=== PATIENT | male | born 1975 | race Caucasian/White ===

== ENCOUNTER 2018-06-30 22:10 | Emergency (ER) | payer SELFPAY ==
[2018-06-30 23:10] VITALS: BP 132/78
--- NOTE | 2018-06-30 23:46 | ER Document Report ---
ED Medical Screen (RME) - General Chief Complaint: Testicular Pain Stated Complaint: LEFT SIDED TESTICULAR/BACK PAIN Time Seen by Provider: 06/30/18 23:44 Notes: 43-year-old male with chief complaint of left testicular pain. He also states he has pain up into his abdomen and sometimes around to his flank. He has become nauseated with the pain. Pain has been intermittent for just over a week. Occasionally sharp. Denies fever, vomiting. He states he has had prostate infections in the past, denies history of kidney stones, denies injury to the testicles. TRAVEL OUTSIDE OF THE [place] IN LAST 30 DAYS: No Physical Exam - Vital signs Vitals: Temp Pulse Resp BP Pulse Ox 98.2 F 72 19 132/78 H 98 06/30/18 23:09 06/30/18 23:09 06/30/18 23:09 06/30/18 23:09 06/30/18 23:09 - Genitourinary Inspection: Normal Tenderness: Testicle tender - Left testicular tenderness in the front which is mild to moderate, cremasteric reflexes normal bilaterally, there is no swelling or erythema. No severe pain. Course - Re-evaluation Re-evalutation: Patient's examination does not indicate torsion. Workup pending. I have greeted and performed a rapid initial assessment of this patient. A comprehensive ED assessment and evaluation of the patient, analysis of test results and completion of the medical decision making process will be conducted by additional ED providers. - Vital Signs Vital signs: Temp Pulse Resp BP Pulse Ox 98.2 F 72 19 132/78 H 98 06/30/18 23:09 06/30/18 23:09 06/30/18 23:09 06/30/18 23:09 06/30/18 23:09
[2018-07-01 00:06] LABS: ABSOLUTE EOSINOPHILS # (AUTO) 0.2 10^3/uL (0.0-0.6); ABSOLUTE LYMPHOCYTES (AUTO) 0.7 10^3/uL (0.5-4.7); ABSOLUTE MONOCYTES (AUTO) 0.6 10^3/uL (0.1-1.4); ABSOLUTE NEUT (AUTO) 7.6 10^3/uL (1.7-8.2); BASOPHILS % (AUTO) 0.3 % (0-2); EOSINOPHILS % (AUTO) 2.2 % (0-6); HEMATOCRIT 44.1 % (37.9-51.0); HEMOGLOBIN 15.9 g/dL (13.5-17.0); LYMPHOCYTES % (AUTO) 7.2 % (13-45); MEAN CORPUSCULAR HEMOGLOBIN 32.1 pg (27.0-33.4); MEAN CORPUSCULAR VOLUME 89 fl (80-97); MONOCYTES % (AUTO) 6.3 % (3-13); PLATELET COUNT 301 10^3/uL (150-450); RED BLOOD COUNT 4.95 10^6/uL (4.35-5.55); RED CELL DISTRIBUTION WIDTH 13.1 % (11.5-14.0); TOTAL CELLS COUNTED % (AUTO) 100 %; WHITE BLOOD COUNT 9.1 10^3/uL (4.0-10.5)
[2018-07-01 00:10] LABS: APPEARANCE,URINE CLEAR; BILIRUBIN,URINE NEGATIVE (NEGATIVE); COLOR,URINE YELLOW; GLUCOSE, URINE NEGATIVE (NEGATIVE); KETONES,URINE NEGATIVE (NEGATIVE); LEUKOCYTE ESTERASE,URINE NEGATIVE (NEGATIVE); NITRITE,URINE NEGATIVE (NEGATIVE); PROTEIN,URINE NEGATIVE (NEGATIVE); URINE SPECIFIC GRAVITY 1.025
[2018-07-01 00:17] LABS: ANION GAP 9 (5-19); BLOOD UREA NITROGEN 24 mg/dL (7-20); CALCIUM 9.9 mg/dL (8.4-10.2); CARBON DIOXIDE 31 mmol/L (22-30); CHLORIDE 101 mmol/L (98-107); GLUCOSE 96 mg/dL (75-110); POTASSIUM 4.3 mmol/L (3.6-5.0); SODIUM 140.8 mmol/L (137-145)
[2018-07-01 01:36] LABS: CHLAM PCR NOT DETECTED (NOT DETECT); GON PCR NOT DETECTED (NOT DETECT)
--- NOTE | 2018-07-01 02:47 | RADIOLOGY REPORT (SQ) ---
CLINICAL HISTORY: left testicular pain COMPARISON: None. TECHNIQUE: US SCROTUM on 06/30/2018 11:44 PM CDT FINDINGS: Right testicle measures 4.8 x 2.0 x 3.4 cm and is normal in echotexture. The epididymis measures 1.0 cm. There is patent flow to the right testicle. Left testicle measures 4.8 x 2.2 x 3.3 cm and is normal in echotexture. The epididymis measures 1.1 cm. There is patent flow to the left testicle. IMPRESSION: No evidence of testicular mass or torsion.
[2018-07-01] MEDS ORDERED: KETOROLAC TROMETHAMINE 60 MG/2 ML SDV IM ONE (03:19)
[2018-07-01] MEDS ORDERED: CIPROFLOXACIN HCL 500 MG TABLET PO ONE (03:42)
[2018-07-01] MEDS ORDERED: HYDROCODONE/ACETAMINOPHEN 5-325 MG (6 TAB/ER DISP) PO PRN (03:58)
--- NOTE | 2018-07-01 04:03 | ER Document Report ---
ED General - General Chief Complaint: Testicular Pain Stated Complaint: LEFT SIDED TESTICULAR/BACK PAIN Time Seen by Provider: 06/30/18 23:44 Notes: Patient is a 43-year-old male with a past medical history of prostatitis in the past who presents complaining of one week of testicular pain worse in the left, low back pain, as well as intermittent testicular swelling. Patient reports pain to the affected areas as being a throbbing, aching, constant pain. Nothing seems to improve or worsen this pain. States this does feel somewhat similar to when he has had prostatitis. Denies any dysuria or dysuria. Denies testicular trauma or trauma to the low back. No fever, weight loss, history of malignancy, or IV drug use. Has not seen his primary care doctor regarding today's concerns. TRAVEL OUTSIDE OF THE [place] IN LAST 30 DAYS: No - Related Data Allergies/Adverse Reactions: No Known Allergies Allergy (Verified 07/01/18 03:55) Past Medical History - General Information source: Patient - Social History Smoking Status: Never Smoker Frequency of alcohol use: None Drug Abuse: None Lives with: Spouse/Significant other Family History: Reviewed & Not Pertinent Review of Systems - Review of Systems Notes: Constitutional: Negative for fever. HENT: Negative for sore throat. Eyes: Negative for visual changes. Cardiovascular: Negative for chest pain. Respiratory: Negative for shortness of breath. Gastrointestinal: Positive for nausea Genitourinary: Positive for testicular pain Musculoskeletal: Positive for low back pain Skin: Negative for rash. Neurological: Negative for headaches, weakness or numbness. 10 point ROS negative except as marked above and in HPI. Physical Exam - Vital signs Vitals: Temp Pulse Resp BP Pulse Ox 98.2 F 72 19 132/78 H 98 06/30/18 23:09 06/30/18 23:09 06/30/18 23:09 06/30/18 23:09 06/30/18 23:09 Interpretation: Normal Notes: PHYSICAL EXAMINATION: GENERAL: Appears moderately uncomfortable but in no acute distress HEAD: Atraumatic, normocephalic. EYES: Pupils equal round and reactive to light, extraocular movements intact, sclera anicteric, conjunctiva are normal. ENT: nares patent, oropharynx clear without exudates. Moist mucous membranes. NECK: Normal range of motion, supple without lymphadenopathy LUNGS: Breath sounds clear to auscultation bilaterally and equal. No wheezes rales or rhonchi. HEART: Regular rate and rhythm without murmurs ABDOMEN: Soft, nontender, normoactive bowel sounds. No guarding, no rebound. No masses appreciated. Rectal: Exquisite tenderness on palpation of the prostate which does feel somewhat enlarged and boggy. : No testicular swelling, no epididymal tenderness or swelling. Positive cremasteric reflex bilaterally. No scrotal or penile lesions. EXTREMITIES: Normal range of motion, no pitting or edema. No cyanosis. NEUROLOGICAL: No focal neurological deficits. Moves all extremities spontaneously and on command. PSYCH: Mildly anxious SKIN: Warm, Dry, normal turgor, no rashes or lesions noted. Course - Re-evaluation Re-evalutation: 07/01/18 04:02 Patient presents with 1 week of bilateral testicular pain worse in the left, low back pain and mild some pubic abdominal discomfort. On exam the patient has no appreciable testicular tenderness, swelling or evidence of epididymitis. No penile lesions. Positive cremasteric reflex bilaterally. Testicular ultrasound is unremarkable. Labs likewise unremarkable. Back exam without any red flag findings or history components. No midline tenderness, step-offs or deformities. On prostate exam the patient has exquisite tenderness on palpation of the prostate, actually became quite tearful during this portion of the exam. Overall history and exam highly suggestive of acute prostatitis. Patient does have a history of the same in the past. Patient was started on ciprofloxacin for the next 30 days. Has been advised to follow-up with urology. At this time will discharge with return precautions and follow-up recommendations. Verbal discharge instructions given a the bedside and opportunity for questions given. Medication warnings reviewed. Patient is in agreement with this plan and has verbalized understanding of return precautions and the need for primary care follow-up in the next 24-72 hours. - Vital Signs Vital signs: Temp Pulse Resp BP Pulse Ox 98.2 F 72 19 132/78 H 98 06/30/18 23:09 06/30/18 23:09 06/30/18 23:09 06/30/18 23:09 06/30/18 23:09 - Laboratory Result Diagrams: 06/30/18 23:50 06/30/18 23:50 Laboratory results interpreted by me: 06/30/18 06/30/18 06/30/18 23:50 23:50 23:50 Seg Neutrophils % 84.0 H Lymphocytes % 7.2 L Carbon Dioxide 31 H BUN 24 H Urine Urobilinogen 2.0 H - Diagnostic Test Radiology reviewed: Reports reviewed Discharge - Discharge Clinical Impression: Left testicular pain Prostatitis Qualifiers: Prostatitis type: acute Qualified Code(s): N41.0 - Acute prostatitis Low back pain Qualifiers: Chronicity: acute Back pain laterality: bilateral Sciatica presence: without sciatica Qualified Code(s): M54.5 - Low back pain Condition: Good Disposition: HOME, SELF-CARE Additional Instructions: Your being treated for an infection of your prostate. Please take all of the antibiotics until they are gone. Do not stop them even if you are feeling better. This infection can be related to multiple bacteria including sexually transmitted infections but can also be related to normal intestinal bacteria such as E. coli. Please return if you develop a fever greater than 101F, have persistent vomiting, pass out, worsening of your pain, become unable to urinate, or have any other symptoms that are worrisome to you. For your pain: Take ibuprofen 600 mg and acetaminophen 1000 mg every 6 hours together as needed for pain. Prescriptions: Ciprofloxacin HCl [Cipro 500 mg Tablet] 500 mg PO BID #60 tablet
== END 2018-07-01 04:25 | disposition home or self-care (01) ==
LOC: ER 22:10
DX: N41.0 Acute prostatitis (principal); N50.812 Left testicular pain; M54.5 Low back pain
CPT/HCPCS: 99284; 96372; 36415; 85025; 80048; 81001; 87491; 87591; 76870; 93976; J1885

== ENCOUNTER 2019-05-04 08:33 | Emergency (ER) | payer OTHER ==
--- NOTE | 2019-05-04 10:03 | ER Document Report ---
ED Medical Screen (RME) - General Chief Complaint: Flu Symptoms Stated Complaint: FLU SYMPTOMS Time Seen by Provider: 05/04/19 09:56 Mode of Arrival: Ambulatory Information source: Patient Notes: 44-year-old male presented to ED for complaint of multiple issues. He states on May 03 started developing prostate issues with urinary tract infections. He states he had similar incidents about a year ago and was seen in the emergency room and they helped him but told him the next time he had this he would need to get referred to a urologist. He states the prostate issues developed until now he has back pain on the left side. On April 11 he developed cough congestion fever chills and this is progressed until now he has severe fatigue shortness of breath cough wheezing and nausea which causes him to develop sweat on his face from the nausea. He is alert and oriented he is having a dry cough in the emergency room he is alert and oriented and he is afebrile at this time. Patient states he does not smoke cigarettes occasionally drinks last smoked marijuana about a month ago and works for [employer] company. After performing a Medical Screening Examination, I spoke with the patient at length in regards to leaving the hospital against medical advice. I do not believe the patient should leave but the patient is alert oriented x4, understands the risks and benefits of staying and leaving including disability and . Pt understands that he can return at any time for further care and is more than welcome to do so. Pt verbalizes this understanding. TRAVEL OUTSIDE OF THE [place] IN LAST 30 DAYS: No - Related Data Allergies/Adverse Reactions: No Known Allergies Allergy (Verified 07/01/18 03:55) Past Medical History Renal/ Medical History: Denies: Hx Peritoneal Dialysis Physical Exam - Vital signs Vitals: Temp Pulse Resp BP Pulse Ox 97.5 F 59 L 20 123/66 98 05/04/19 08:38 05/04/19 08:38 05/04/19 08:38 05/04/19 08:38 05/04/19 08:38 Course - Vital Signs Vital signs: Temp Pulse Resp BP Pulse Ox 97.5 F 59 L 20 123/66 98 05/04/19 08:38 05/04/19 08:38 05/04/19 08:38 05/04/19 08:38 05/04/19 08:38
[2019-05-04 10:29] LABS: ABSOLUTE BASOPHILS # (AUTO) 0.1 10^3/uL (0.0-0.2); ABSOLUTE EOSINOPHILS # (AUTO) 0.2 10^3/uL (0.0-0.6); ABSOLUTE MONOCYTES (AUTO) 0.5 10^3/uL (0.1-1.4); ABSOLUTE NEUT (AUTO) 3.7 10^3/uL (1.7-8.2); BASOPHILS % (AUTO) 0.9 % (0-2); EOSINOPHILS % (AUTO) 3.1 % (0-6); HEMATOCRIT 46.8 % (37.9-51.0); HEMOGLOBIN 16.2 g/dL (13.5-17.0); LYMPHOCYTES % (AUTO) 40.5 % (13-45); MEAN CORPUSCULAR HEMOGLOBIN 31.9 pg (27.0-33.4); MEAN CORPUSCULAR HGB CONC 34.6 g/dL (32.0-36.0); MEAN CORPUSCULAR VOLUME 92 fl (80-97); MONOCYTES % (AUTO) 6.5 % (3-13); PLATELET COUNT 362 10^3/uL (150-450); RED BLOOD COUNT 5.07 10^6/uL (4.35-5.55); RED CELL DISTRIBUTION WIDTH 14.1 % (11.5-14.0); TOTAL CELLS COUNTED % (AUTO) 100 %; WHITE BLOOD COUNT 7.5 10^3/uL (4.0-10.5)
[2019-05-04 10:37] LABS: APPEARANCE,URINE CLEAR; BILIRUBIN,URINE NEGATIVE (NEGATIVE); COLOR,URINE YELLOW; GLUCOSE, URINE NEGATIVE (NEGATIVE); KETONES,URINE NEGATIVE (NEGATIVE); PROTEIN,URINE NEGATIVE (NEGATIVE); URINE SPECIFIC GRAVITY 1.025; UROBILINOGEN,URINE NEGATIVE mg/dL (<2.0)
--- NOTE | 2019-05-04 10:43 | RADIOLOGY REPORT (SQ) ---
EXAM DESCRIPTION: CHEST 2 VIEWS COMPLETED DATE/TIME: 05/04/2019 10:35 am REASON FOR STUDY: Cough congestion wheezes COMPARISON: None. EXAM PARAMETERS: NUMBER OF VIEWS: Two views. TECHNIQUE: PA and lateral views of the chest were obtained.. RADIATION DOSE: NA LIMITATIONS: none FINDINGS: LUNGS AND PLEURA: No consolidation, pleural effusion or pneumothorax. MEDIASTINUM AND HILAR STRUCTURES: No mediastinal or hilar contour abnormality. HEART AND VASCULAR STRUCTURES: The cardiac silhouette and pulmonary vasculature are within normal fontana its. BONES: No acute findings. HARDWARE: None in the chest. OTHER: No other finding. IMPRESSION: No acute cardiopulmonary process. TECHNICAL DOCUMENTATION: JOB ID: [id number] [employer]- All Rights Reserved Reading location - IP/workstation name: [email or web address]
[2019-05-04 10:49] LABS: ALBUMIN 4.5 g/dL (3.5-5.0); ALKALINE PHOSPHATASE 73 U/L (38-126); ANION GAP 8 (5-19); ASPARTATE AMINO TRANSFERASE 38 U/L (17-59); BILIRUBIN,DIRECT 0.4 mg/dL (0.0-0.4); BILIRUBIN,TOTAL 0.5 mg/dL (0.2-1.3); BLOOD UREA NITROGEN 24 mg/dL (7-20); CALCIUM 9.4 mg/dL (8.4-10.2); CARBON DIOXIDE 29 mmol/L (22-30); CHLORIDE 106 mmol/L (98-107); GLUCOSE 102 mg/dL (75-110); POTASSIUM 4.8 mmol/L (3.6-5.0); TOTAL PROTEIN 8.2 g/dL (6.3-8.2)
--- NOTE | 2019-05-04 12:29 | ER Document Report ---
ED Flu Like - General Chief Complaint: Flu Symptoms Stated Complaint: FLU SYMPTOMS Time Seen by Provider: 05/04/19 09:56 Primary Care Provider: [facility] [Provider Group] - Follow up in 3-5 days Mode of Arrival: Ambulatory Notes: Patient is a 44-year-old male who presents to the emergency department with a chief complaint of a cough and flulike symptoms that he has had for the past 3 weeks. Patient has had a cough. Denies any purulent drainage. He also has complaints of fullness in his prostate area. States that he has history of prostate issues in the past. TRAVEL OUTSIDE OF THE [place] IN LAST 30 DAYS: No - Related Data Allergies/Adverse Reactions: No Known Allergies Allergy (Verified 07/01/18 03:55) Past Medical History - General Information source: Patient - Social History Smoking Status: Unknown if Ever Smoked Frequency of alcohol use: None Drug Abuse: None Family History: Reviewed & Not Pertinent Patient has suicidal ideation: No Patient has homicidal ideation: No Renal/ Medical History: Denies: Hx Peritoneal Dialysis Review of Systems - Review of Systems Notes: REVIEW OF SYSTEMS: CONSTITUTIONAL : Denies recent illness. Denies recent unintentional weight loss. See HPI. EENT: See HPI. CARDIOVASCULAR: Denies chest pain. RESPIRATORY: Denies shortness of breath, cough, congestion, difficulty breathing, or wheezing. GASTROINTESTINAL: Denies nausea, vomiting, and diarrhea. Denies abdominal pain. Denies constipation. GENITOURINARY: See HPI. MUSCULOSKELETAL: Denies neck and back pain. Denies joint pain or swelling. SKIN: Denies rash, itchiness, or lesions HEMATOLOGIC : Denies easy bruising or bleeding. LYMPHATIC: Denies swollen, painful, enlarged glands. NEUROLOGICAL: Denies no numbness or tingling denies weakness. Denies headache. Denies altered mental status. Denies alteration in speech. PSYCHIATRIC: Denies stress, anxiety, alteration in sleep patterns, or depression. All other systems reviewed and negative. Physical Exam - Vital signs Vitals: Temp Pulse Resp BP Pulse Ox 97.5 F 59 L 20 123/66 98 05/04/19 08:38 05/04/19 08:38 05/04/19 08:38 05/04/19 08:38 05/04/19 08:38 - Notes Notes: PHYSICAL EXAMINATION: GENERAL: Appears well, healthy, well-nourished, no acute distress. HEAD: Normocephalic, atraumatic. EYES: PERRL, conjunctiva normal, all extraocular movements intact, sclera nonicteric ENT: Moist mucous membranes. Rhinorrhea noted. Edema and erythema noted to the nasal mucosa. NECK: Supple, no noticeable swelling, redness, rash. Normal range of motion. LUNGS: Equal breath sounds bilaterally and clear to auscultation. No wheezes rales or rhonchi. CARDIOVASCULAR: S1-S2, regular rate, regular rhythm. Radial pulses 2+, normal. ABDOMEN: Normoactive bowel sounds. Soft, nontender, no guarding, no rebound tenderness, and no masses palpated. EXTREMITIES: Normal strength and range of motion, no pitting or edema. No cyanosis. NEUROLOGICAL: Moves all extremities upon command. Strength 5/5 in all extremities. PSYCH: Normal mood, normal affect. SKIN: Warm, dry. No rash, lesions, ulcerations noted. Normal skin turgor. RECTAL: Tenderness noted to the prostate on rectal exam. Course - Re-evaluation Re-evalutation: 05/04/19 12:32 Rectal exam done with SIMONE Brian at bedside. Patient did have tenderness noted to his prostate. Patient will be placed on ciprofloxacin. He will fo llow-up with urology. He also has bronchitis.Labs ordered and triage show a normal CBC. His lipase is mildly elevated. I instructed him to continue to drink plenty of fluids. Urinalysis is negative. Follow-up precautions were given. Verbal discharge instructions were given to the patient. They verbalized understanding. They are stable for discharge. - Vital Signs Vital signs: Temp Pulse Resp BP Pulse Ox 97.8 F 66 20 117/78 100 05/04/19 13:42 05/04/19 13:42 05/04/19 08:38 05/04/19 13:42 05/04/19 13:42 - Laboratory Result Diagrams: 05/04/19 10:05 05/04/19 10:05 Laboratory results interpreted by me: 05/04/19 05/04/19 10:05 10:05 RDW 14.1 H BUN 24 H Lipase 321.3 H Discharge - Discharge Clinical Impression: Flu-like symptoms, Bronchitis Prostatitis Qualifiers: Prostatitis type: unspecified Qualified Code(s): N41.9 - Inflammatory disease of prostate, unspecified Condition: Stable Disposition: HOME, SELF-CARE Instructions: Prostatitis (OM) Additional Instructions: You were seen for symptoms most consistent with bronchitis. This can take up to 12 weeks to fully resolve. This is generally due to a viral infection. Please follow-up with your primary doctor in the next 2-3 days. Return if you develop worsening cough, vomiting, fever >100.4, pass out, begin coughing blood, or have any other symptoms that are concerning to you. Please use the medications prescribed today as directed. Your being treated for an infection of your prostate. Please take all of the antibiotics until they are gone. Do not stop them even if you are feeling better. This infection can be related to multiple bacteria including sexually transmitted infections but can also be related to normal intestinal bacteria such as E. coli. Please return if you develop a fever greater than 101F, have persistent vomiting, pass out, worsening of your pain, become unable to urinate, or have any other symptoms that are worrisome to you. For your pain: Take ibuprofen 600 mg and acetaminophen 1000 mg every 6 hours together as needed for pain. Prescriptions: Ciprofloxacin HCl [Cipro 500 mg Tablet] 500 mg PO BID #60 tablet Prednisone [Deltasone 20 mg Tablet] 3 tab PO DAILY 5 Days #15 tablet Fluticasone Propionate [Flonase Nasal Cashmere 50 Mcg/Cashmere 16 gm] 2 sprays NASL DAILY #1 inhaler Forms: Return to Work Referrals: [facility] [Provider Group] - Follow up in 3-5 days
[2019-05-04] MEDS ORDERED: CEFTRIAXONE INJ 250 MG VIAL IM ONE (12:34)
[2019-05-04] MEDS ORDERED: LIDOCAINE 1% INJ-PF (10 MG/ML) 30 ML SDV INJ ONE (12:35)
[2019-05-04 13:44] VITALS: BP 117/78
[2019-05-04 15:19] LABS: CHLAM PCR NOT DETECTED (NOT DETECT)
== END 2019-05-04 13:45 | disposition home or self-care (01) ==
LOC: ER 08:33
DX: J40 Bronchitis, not specified as acute or chronic (principal); N41.9 Inflammatory disease of prostate, unspecified; R05 Cough; J34.89 Other specified disorders of nose and nasal sinuses
CPT/HCPCS: 99283; 96372; 36415; 83690; 85025; 80053; 81001; 87491; 87591; 71046; J3490; J0696

== ENCOUNTER 2019-06-11 12:13 | Emergency (ER) | payer OTHER ==
--- NOTE | 2019-06-11 12:25 | ER Document Report ---
ED Medical Screen (RME) - General Chief Complaint: Nausea/Vomiting Stated Complaint: NAUSEA/VOMITING Time Seen by Provider: 06/11/19 12:22 Mode of Arrival: Ambulatory Notes: 44-year-old male presented to ED for cough cold congestion nausea vomiting body aches since yesterday. He states he was recently seen in the emergency room for bronchitis and is never really gotten over the bronchitis. He states yesterday he started vomiting most of the day. He states the body aches are even worse than the vomiting. He is alert oriented respirations regular nonlabored speaking in full sentences. We will get blood urine influenza test and a chest x-ray. Will order him some Zofran and he will be seen by another provider. I have greeted and performed a rapid initial assessment of this patient. A comprehensive ED assessment and evaluation of the patient, analysis of test results and completion of medical decision making process will be conducted by an additional ED providers. TRAVEL OUTSIDE OF THE [place] IN LAST 30 DAYS: No - Related Data Allergies/Adverse Reactions: No Known Allergies Allergy (Verified 07/01/18 03:55) Past Medical History Renal/ Medical History: Denies: Hx Peritoneal Dialysis Physical Exam - Vital signs Vitals: Temp Pulse Resp BP Pulse Ox 98.1 F 74 20 110/81 96 06/11/19 12:17 06/11/19 12:17 06/11/19 12:17 06/11/19 12:17 06/11/19 12:17 Course - Vital Signs Vital signs: Temp Pulse Resp BP Pulse Ox 98.1 F 74 20 110/81 96 06/11/19 12:17 06/11/19 12:17 06/11/19 12:17 06/11/19 12:17 06/11/19 12:17
[2019-06-11] MEDS ORDERED: NORMAL SALINE 1000 ML 1,000 ML IV ONE ×2 (12:56→19:51)
[2019-06-11] MEDS ORDERED: ONDANSETRON HCL INJ/PF 4 MG/2 ML SDV IV ONE (12:56)
[2019-06-11] MEDS ORDERED: IPRATROPIUM/ALBUTEROL 0.5-2.5 MG/3 ML AMPUL NEB ONE (12:57)
[2019-06-11] MEDS ORDERED: KETOROLAC TROMETHAMINE INJ/PF 30 MG/1 ML SDV IV ONE (12:57)
--- NOTE | 2019-06-11 12:59 | ER Document Report ---
ED General <NATHANIEL HANSON - Last Filed: 06/11/19 23:22> - General Mode of Arrival: Ambulatory TRAVEL OUTSIDE OF THE [place] IN LAST 30 DAYS: No - HPI Onset: Yesterday Onset/Duration: Gradual Quality of pain: Achy Pain Level: 4 Associated symptoms: Body/muscle aches, Nonproductive cough, Nausea, Vomiting. denies: Fever, Shortness of breath Exacerbated by: Denies Relieved by: Denies Similar symptoms previously: Yes Recently seen / treated by doctor: No <MONSERRAT MAGAÑA - Last Filed: 06/12/19 08:07> - General Chief Complaint: Nausea/Vomiting Stated Complaint: NAUSEA/VOMITING Time Seen by Provider: 06/11/19 12:42 Primary Care Provider: LYLA [facility] [Provider Group] - Follow up as needed [facility] [Provider Group] - Follow up as needed [facility] [Provider Group] - Follow up tomorrow Notes: Patient presents complaining of cough and congestion for the past 2 and half months. Patient states that yesterday he started to have some vomiting after coughing. Patient complains of generalized body aches that recently started as well. Patient reports breaking out in a sweat although denies any objective fever. Patient also complains of left flank pain. (MONSERRAT MAGAÑA) - Related Data Allergies/Adverse Reactions: No Known Allergies Allergy (Verified 07/01/18 03:55) Past Medical History - General Information source: Patient - Social History Smoking Status: Former Smoker Frequency of alcohol use: Occasional Drug Abuse: Marijuana Occupation: Moving and storage Lives with: Family Family History: Reviewed & Not Pertinent - Medical History Medical History: Negative Renal/ Medical History: Denies: Hx Peritoneal Dialysis Surgical Hx: Negative <MONSERRAT MAGAÑA - Last Filed: 06/12/19 08:07> Review of Systems - Review of Systems Constitutional: No symptoms reported. denies: Fever EENT: Nose pain, Nose congestion Cardiovascular: denies: Chest pain Respiratory: Cough, Wheezing Gastrointestinal: Nausea, Vomiting - Posttussive. denies: Abdomen distended Genitourinary: Flank pain Male Genitourinary: No symptoms reported Musculoskeletal: Back pain Skin: No symptoms reported Hematologic/Lymphatic: No symptoms reported Neurological/Psychological: No symptoms reported <MONSERRAT MAGAÑA - Last Filed: 06/12/19 08:07> Physical Exam - General General appearance: Appears well, Alert In distress: None - HEENT Head: Normocephalic, Atraumatic Eyes: Normal Conjunctiva: Normal Ears: Normal External canal: Normal Nasal: Swelling, Clear rhinorrhea Mouth/Lips: Normal Mucous membranes: Normal Pharynx: Normal. No: Erythema, Exudate, Tonsillar hypertrophy Neck: Normal, Supple. No: Lymphadenopathy, Meningismus - Respiratory Respiratory status: No respiratory distress Chest status: Nontender Breath sounds: Nonproductive cough, Wheezing - With cough only Chest palpation: Normal - Cardiovascular Rhythm: Regular Heart sounds: S1 appreciated, S2 appreciated Murmur: No - Abdominal Inspection: Normal Distension: No distension Bowel sounds: Normal Tenderness: Nontender - Back Back: Tender - Lower lumbar paraspinal tenderness - Extremities General upper extremity: Normal inspection, Normal strength General lower extremity: Normal inspection, Normal strength - Neurological Neuro grossly intact: Yes Cognition: Normal [place] Coma Scale Eye Opening: Spontaneous [place] Coma Scale Verbal: Oriented [place] Coma Scale Motor: Obeys Commands [place] Coma Scale Total: 15 - Psychological Associated symptoms: Normal affect, Normal mood - Skin Skin Temperature: Warm Skin Moisture: Dry Skin Color: Normal <MONSERRAT MAGAÑA - Last Filed: 06/12/19 08:07> - Vital signs Vitals: Temp Pulse Resp BP Pulse Ox 98.1 F 74 20 110/81 96 06/11/19 12:17 06/11/19 12:17 06/11/19 12:17 06/11/19 12:17 06/11/19 12:17 Course - Laboratory Result Diagrams: 06/11/19 13:31 06/11/19 13:31 <NATHANIEL HANSON - Last Filed: 06/11/19 23:22> - Laboratory Result Diagrams: 06/11/19 13:31 06/11/19 13:31 - Diagnostic Test Radiology reviewed: Reports reviewed <MONSERRAT MAGAÑA - Last Filed: 06/12/19 08:07> - Re-evaluation Re-evalutation: 06/11/19 19:16 Patient with no acute findings on chest x-ray. No concern for pneumothorax or pneumonia at this time. Patient's influenza test negative. Patient does have incidental hematuria noted on urinalysis with back pain. Will add CT imaging as patient feels that his pain is a 4 out of 5 scale at this time. 06/11/19 19:29 CT scan reviewed. Patient with incidental finding of a 2 cm hypoattenuating mass in the left kidney. Patient with only moderate blood in urine with 1+ RBC on urinalysis. Consulted with Dr. Mosqueda regarding patient presentation. Recommends outpatient follow-up with primary doctor for further evaluation of renal mass at this time. 06/11/19 19:50 Consulted with radiologist regarding choice of imaging for patient's presentation. Radiologist recommends adding on CT abdomen pelvis with IV contrast for further evaluation of renal mass. Patient with fever now of 102.5. Patient diaphoretic complaining of resistant left flank pain. Additional orders placed. 06/11/19 20:07 Report and handoff given to CAREN Finch (MONSERRAT MAGAÑA) - Vital Signs Vital signs: Temp Pulse Resp BP Pulse Ox 98.8 F 88 18 110/60 96 06/11/19 23:49 06/11/19 23:49 06/11/19 23:49 06/11/19 23:49 06/11/19 23:49 - Laboratory Laboratory results interpreted by me: 06/11/19 06/11/19 13:31 16:20 Lymph % (Auto) 7.7 L Seg Neutrophils % 81.8 H Urine Blood MODERATE H Labs- Entire Visit 06/11/19 06/11/19 06/11/19 13:31 13:31 13:45 WBC 8.1 RBC 4.92 Hgb 15.7 Hct 44.6 MCV 91 MCH 32.0 MCHC 35.3 RDW 13.6 Plt Count 259 Lymph % (Auto) 7.7 L [place] % (Auto) 9.4 Eos % (Auto) 0.7 Baso % (Auto) 0.4 Absolute Neuts (auto) 6.7 Absolute Lymphs (auto) 0.6 Absolute Monos (auto) 0.8 Absolute Eos (auto) 0.1 Absolute Basos (auto) 0.0 Seg Neutrophils % 81.8 H Sodium 140.1 Potassium 3.9 Chloride 105 Carbon Dioxide 26 Anion Gap 9 BUN 18 Creatinine 0.95 Est GFR ( Amer) > 60 Est GFR (MDRD) Non-Af > 60 Glucose 92 Calcium 9.4 Magnesium 1.9 Total Bilirubin 0.5 Direct Bilirubin 0.3 Neonat Total Bilirubin Not Reportable Neonat Direct Bilirubin Not Reportable Neonat Indirect Bili Not Reportable AST 29 ALT 17 Alkaline Phosphatase 71 Total Protein 7.9 Albumin 4.5 Lipase 140.9 Urine Color Urine Appearance Urine pH Ur Specific [place] Urine Protein Urine Glucose (UA) Urine Ketones Urine Blood Urine Nitrite (Reflex) Urine Bilirubin Urine Urobilinogen Leukocyte Esterase Rfl Urine RBC (Auto) Urine WBC (Reflex) Urine Mucus (Auto) Urine Ascorbic Acid Influenza A (Rapid) NEGATIVE Influenza B (Rapid) NEGATIVE 06/11/19 16:20 WBC RBC Hgb Hct MCV MCH MCHC RDW Plt Count Lymph % (Auto) [place] % (Auto) Eos % (Auto) Baso % (Auto) Absolute Neuts (auto) Absolute Lymphs (auto) Absolute Monos (auto) Absolute Eos (auto) Absolute Basos (auto) Seg Neutrophils % Sodium Potassium Chloride Carbon Dioxide Anion Gap BUN Creatinine Est GFR ( Amer) Est GFR (MDRD) Non-Af Glucose Calcium Magnesium Total Bilirubin Direct Bilirubin Neonat Total Bilirubin Neonat Direct Bilirubin Neonat Indirect Bili AST ALT Alkaline Phosphatase Total Protein Albumin Lipase Urine Color YELLOW Urine Appearance CLEAR Urine pH 5.0 Ur Specific [place] 1.021 Urine Protein NEGATIVE Urine Glucose (UA) NEGATIVE Urine Ketones NEGATIVE Urine Blood MODERATE H Urine Nitrite (Reflex) NEGATIVE Urine Bilirubin NEGATIVE Urine Urobilinogen NEGATIVE Leukocyte Esterase Rfl NEGATIVE Urine RBC (Auto) 1 Urine WBC (Reflex) 2 Urine Mucus (Auto) OCC Urine Ascorbic Acid NEGATIVE Influenza A (Rapid) Influenza B (Rapid) (MONSERRAT MAGAÑA) Discharge <NATHANIEL HANSON - Last Filed: 06/11/19 23:22> <MONSERRAT MAGAÑA - Last Filed: 06/12/19 08:07> - Discharge Clinical Impression: Bronchitis, Bronchospasm, Left renal mass Low back pain Qualifiers: Chronicity: unspecified Back pain laterality: left Sciatica presence: without sciatica Qualified Code(s): M54.5 - Low back pain Hematuria Qualifiers: Hematuria type: unspecified type Qualified Code(s): R31.9 - Hematuria, unspecified Condition: Good Disposition: HOME, SELF-CARE Instructions: Growth or Mass, Pending Workup (OM) Additional Instructions: Return immediately for any new or worsening symptoms Your CT scan showed no concerning findings, you have a cyst on your kidney. Follow up with your primary care. BRONCHITIS: You have acute bronchitis. This disease is an infection or inflammation of the air passageways in your lungs. Symptoms usually include cough, low grade fever, shortness of breath, and wheezing. The cough usually persists for a couple of weeks. Most cases of bronchitis get better without antibiotics. We prescribe antibiotics when we believe bacteria are damaging your airways, or if there's high risk the bronchitis will worsen into pneumonia. Increase your fluid intake. A cool mist humidifier may make your lungs more comfortable. An expectorant (cough medicine that loosens phlegm) can help. If you smoke, STOP!!! Recovery from bronchitis can be somewhat slow, but you should see improvement within a day or two. Repeated episodes of bronchitis may result in lung damage -- for example, chronic bronchitis, recurrent pneumonias, or emphysema. Call the doctor if you develop increasing fever, shortness of breath, chest pain, bloody sputum, or otherwise worsen. If you have not improved at all after several days, contact the physician. BRONCHITIS WITH BRONCHOSPASM (WHEEZING): You have bronchitis with bronchospasm (wheezing). Sometimes people develop wheezing with a chest cold. This occurs either because of an underlying tendency toward asthma or because the virus itself irritates the bronchial tubes. This irritation causes cough, shortness of breath, and wheezing. Emergency treatment of bronchospasm may include adrenaline shots or bronchodilator aerosol. You may feel lightheaded and have a rapid pulse for an hour or two. Rest and get plenty of fluids. At home, we'll treat you with a bronchodilator inhaler. Corticosteroids may be required for some patients. Until you recover, avoid chemical fumes, dusts, pollens, and exercising in very cold or dry air. If you smoke, stop now! Most cases of bronchitis get better without antibiotics. We prescribe antibiotics when we believe bacteria are damaging your airways, or if there's high risk the bronchitis will worsen into pneumonia. Increase your fluid intake. A cool mist humidifier may make your lungs more comfortable. An expectorant (cough medicine that loosens phlegm) can help. Repeated episodes of bronchitis and bronchospasm may result in lung damage -- for example, chronic bronchitis, recurrent pneumonias, or emphysema. If you develop a fever, increased wheezing, chest pain, or severe shortness of breath, you should contact the doctor immediately. INHALED BRONCHODILATORS: You have received a treatment of and/or prescription for an inhaled bronchodilator -- a medication which stimulates the airways in the lung to dilate. This improves the flow of air in asthma, bronchitis, and emphysema. These medicines have some similarity to adrenaline, and can cause similar side effects: shakiness, racing heart, and a sense of nervousness. These side effects decrease with time. Contact your doctor if these side effects are severe. Do not over-use the medicine. Too-frequent use of the inhaler may make it ineffective. Call your doctor if the inhaler is not controlling your symptoms at the prescribed doses. STEROID MEDICATION: You have been given an injection of or oral medicine of the cortisone/steroid class. This medication is used to control inflammation or allergy. Eplon t is usually only given for a short period of time, until the acute process subsides. There are usually no side effects from short-term use of cortisone-like medications. Some persons feel an increased sense of well-being and are not sleepy at bedtime. Long-term use of cortisone medications is best avoided, unless required for a severe condition. If your condition does not remit, or relapses after the course of corticosteroid medication, you should consult your physician. USE OF ACETAMINOPHEN (Tylenol): Acetaminophen may be taken for pain relief or fever control. It's much safer than aspirin, offering a wider range of "safe" dosages. It is safe during . Some brand names are Tylenol, Panadol, Datril, Anacin 3, Tempra, and Liquiprin. Acetaminophen can be repeated every four hours. The following are maximum recommended dosages: >89 pounds or adults 650 mg to 900 mg Acetaminophen can be repeated every four hours. Maximum dose not to exceed 4000 mg a day. FOLLOW-UP CARE: If you have been referred to a physician for follow-up care, call the physicians office for an appointment as you were instructed or within the next two days. If you experience worsening or a significant change in your symptoms, notify the physician immediately or return to the Emergency Department at any time for re-evaluation. Prescriptions: Prednisone [Deltasone 10 mg Tablet] 10 mg PO ASDIR #21 tablet Inhaler,Assist Device,Accesory [Optichamber] 1 each MC Q4 PRN #1 each PRN Reason: Albuterol Sulfate [Proair HFA Inhalation Aerosol 8.5 gm MDI] 2 puff IH Q4H PRN #1 mdi PRN Reason: Forms: Return to Work Referrals: [facility] [Provider Group] - Follow up as needed [facility] [Provider Group] - Follow up as needed [facility] [Provider Group] - Follow up tomorrow
--- NOTE | 2019-06-11 13:46 | RADIOLOGY REPORT (SQ) ---
EXAM DESCRIPTION: CHEST 2 VIEWS COMPLETED DATE/TIME: 06/11/2019 1:17 pm REASON FOR STUDY: Cough congestion COMPARISON: None. EXAM PARAMETERS: NUMBER OF VIEWS: two views TECHNIQUE: Digital Frontal and Lateral radiographic views of the chest acquired. RADIATION DOSE: NA LIMITATIONS: none FINDINGS: LUNGS AND PLEURA: Chronic interstitial changes without evidence of acute airspace disease, pleural effusion or pneumothorax. MEDIASTINUM AND HILAR STRUCTURES: No masses or contour abnormalities. HEART AND VASCULAR STRUCTURES: Heart normal size. No evidence for failure. BONES: No acute findings. HARDWARE: None in the chest. OTHER: No other significant finding. IMPRESSION: No evidence of acute cardiopulmonary process. TECHNICAL DOCUMENTATION: JOB ID: [id number] 2010 [employer]- All Rights Reserved Reading location - IP/workstation name: [email or web address]
[2019-06-11 14:18] LABS: ABSOLUTE EOSINOPHILS # (AUTO) 0.1 10^3/uL (0.0-0.6); ABSOLUTE LYMPHOCYTES (AUTO) 0.6 10^3/uL (0.5-4.7); ABSOLUTE MONOCYTES (AUTO) 0.8 10^3/uL (0.1-1.4); ABSOLUTE NEUT (AUTO) 6.7 10^3/uL (1.7-8.2); BASOPHILS % (AUTO) 0.4 % (0-2); EOSINOPHILS % (AUTO) 0.7 % (0-6); HEMATOCRIT 44.6 % (37.9-51.0); HEMOGLOBIN 15.7 g/dL (13.5-17.0); LYMPHOCYTES % (AUTO) 7.7 % (13-45); MEAN CORPUSCULAR HGB CONC 35.3 g/dL (32.0-36.0); MEAN CORPUSCULAR VOLUME 91 fl (80-97); MONOCYTES % (AUTO) 9.4 % (3-13); PLATELET COUNT 259 10^3/uL (150-450); RED BLOOD COUNT 4.92 10^6/uL (4.35-5.55); RED CELL DISTRIBUTION WIDTH 13.6 % (11.5-14.0); SEGMENTED NEUTROPHILS % (AUTO) 81.8 % (42-78); TOTAL CELLS COUNTED % (AUTO) 100 %; WHITE BLOOD COUNT 8.1 10^3/uL (4.0-10.5)
[2019-06-11 14:18] LABS: A TYPE INFLUENZA AG NEGATIVE (NEGATIVE); B INFLUENZA AG NEGATIVE (NEGATIVE)
[2019-06-11 14:33] LABS: ALBUMIN 4.5 g/dL (3.5-5.0); ALKALINE PHOSPHATASE 71 U/L (38-126); ANION GAP 9 (5-19); ASPARTATE AMINO TRANSFERASE 29 U/L (17-59); BILIRUBIN,DIRECT 0.3 mg/dL (0.0-0.4); BILIRUBIN,TOTAL 0.5 mg/dL (0.2-1.3); BLOOD UREA NITROGEN 18 mg/dL (7-20); CALCIUM 9.4 mg/dL (8.4-10.2); CARBON DIOXIDE 26 mmol/L (22-30); CHLORIDE 105 mmol/L (98-107); GLUCOSE 92 mg/dL (75-110); POTASSIUM 3.9 mmol/L (3.6-5.0); TOTAL PROTEIN 7.9 g/dL (6.3-8.2)
[2019-06-11 17:06] LABS: APPEARANCE,URINE CLEAR; BILIRUBIN,URINE NEGATIVE (NEGATIVE); COLOR,URINE YELLOW; GLUCOSE, URINE NEGATIVE (NEGATIVE); KETONES,URINE NEGATIVE (NEGATIVE); PROTEIN,URINE NEGATIVE (NEGATIVE); URINE SPECIFIC GRAVITY 1.021; UROBILINOGEN,URINE NEGATIVE mg/dL (<2.0)
[2019-06-11] MEDS ORDERED: ALBUTEROL SULFATE 0.083% NEB 2.5 MG/3 ML AMPUL NEB ONE (18:33)
[2019-06-11] MEDS ORDERED: PREDNISONE 20 MG TABLET PO ONE (18:34)
--- NOTE | 2019-06-11 19:22 | RADIOLOGY REPORT (SQ) ---
EXAM DESCRIPTION: CT ABD/PELVIS NO ORAL OR IV COMPLETED DATE/TIME: 06/11/2019 6:43 pm REASON FOR STUDY: L flank pain, hematuria COMPARISON: None. TECHNIQUE: CT scan of the abdomen and pelvis performed without intravenous or oral contrast. Images reviewed with lung, soft tissue, and bone windows. Reconstructed coronal and sagittal MPR images revi ewed. All images stored on PACS. All CT scanners at this facility use dose modulation, iterative reconstruction, and/or weight based d osing when appropriate to reduce radiation dose to as low as reasonably achievable (ALARA). [facility]: Dose Right [facility]: CareDose [facility]: Dose Right [facility]: Teradose 4D [facility]: Netgen RADIATION DOSE: CT Rad equipment meets quality standard of care and radiation dose reduction techniq ues were employed. CTDIvol: 9.4 - 14.4 mGy. DLP: 1409 mGy-cm.mGy. LIMITATIONS: None. FINDINGS: LOWER CHEST: No significant findings. No nodules or infiltrates. NON-CONTRASTED LIVER, SPLEEN, ADRENALS: Evaluation limited by lack of IV contrast. No identified sign ificant masses. PANCREAS: No masses. No peripancreatic inflammatory changes. GALLBLADDER: No identified stones by CT criteria. No inflammatory changes to suggest cholecystitis. RIGHT KIDNEY AND URETER: No suspicious masses. Assessment limited by lack of IV contrast. No signif icant calcifications. No hydronephrosis or hydroureter. LEFT KIDNEY AND URETER: There is a 2 cm hypoattenuating mass in the mid left kidney. This may repres ent a cyst, however this is incompletely evaluated on this noncontrast examination. No significant calcifications. No hydronephrosis or hydroureter. AORTA AND RETROPERITONEUM: No aneurysm. No retroperitoneal masses or adenopathy. BOWEL AND PERITONEAL CAVITY: No obvious masses or inflammatory changes. No free fluid. APPENDIX: Normal. PELVIS, BLADDER, AND ABDOMINAL WALL:No abnormal masses. No free fluid. Bladder normal. BONES: No significant findings. OTHER: No other significant finding. IMPRESSION: 1. No evidence of urolithiasis 2. 2 cm hypoattenuating mass in the left kidney. This may represent a cyst, however this is incompl etely evaluated on this noncontrast exam. Recommend dedicated renal CT or MRI to further characteriz e given patient's history of hematuria. COMMENT: Quality ID # [id number]: Final reports with documentation of one or more dose reduction techniques (e.g., Automated exposure control, adjustment of the mA and/or kV according to patient size, use of iterative reconstruction technique) TECHNICAL DOCUMENTATION: JOB ID: [id number] 2010 [employer]- All Rights Reserved Reading location - IP/workstation name: [email or web address]
[2019-06-11] MEDS ORDERED: HYDROCODONE/ACETAMINOPHEN 5-325 MG (6 TAB/ER DISP) PO PRN (19:33)
[2019-06-11] MEDS ORDERED: IBUPROFEN 800 MG TABLET PO ONE (19:46)
[2019-06-11] MEDS ORDERED: ACETAMINOPHEN 325 MG TABLET PO ONE (19:51)
--- NOTE | 2019-06-11 22:02 | RADIOLOGY REPORT (SQ) ---
EXAM DESCRIPTION: CLINICAL HISTORY: 44 years Male dedicated renal ct,L renal mass, fever, flank pain COMPARISON: Noncontrast CT of the abdomen and pelvis from today. TECHNIQUE: Axial images with 100 mL of Omnipaque 350. There splenoportal phase and delayed images of the kidneys. This exam was performed according to our departmental dose-optimization program, which includes automated exposure control, adjustment of the mA and/or kV according to patient size and/or use of iterative reconstruction technique.. FINDINGS: Lung bases unremarkable. Mild fatty liver. Borderline spleen size. Biliary system, pancreas, adrenal glands aorta and para-aortic regions are unremarkable. Left kidney demonstrates a simple cyst in the mid upper pole posteriorly. No enhancement or wall thickening. The cyst measures 20 x 15 mm. No suspicious abnormal renal enhancement to suggest pyelonephritis. Bowel loops and peritoneal cavity unremarkable. Normal appendix. CT of the pelvis demonstrates early sigmoid diverticulosis. Urinary bladder unremarkable. Prostate not enlarged. No adenopathy or free fluid. IMPRESSION: 1. Simple cyst in the left kidney. No acute findings in the kidneys. Specifically no evidence for perfusion abnormalities to suggest pyelonephritis. 2. Mild fatty liver. Borderline spleen size. 3. Mild increased colonic stool. Early sigmoid diverticulosis. No acute bowel or peritoneal abnormalities.
[2019-06-11 23:51] VITALS: BP 110/60
== END 2019-06-11 23:49 | disposition home or self-care (01) ==
LOC: ER 12:13
DX: J20.9 Acute bronchitis, unspecified (principal); N28.89 Other specified disorders of kidney and ureter; R31.9 Hematuria, unspecified; R11.2 Nausea with vomiting, unspecified; M79.10 Myalgia, unspecified site; M54.5 Low back pain
CPT/HCPCS: 94640 ×2; 99284; 96361; 96374; 96375; 36415; 83690; 83735; 85025; 80053; 81001; 87804; 71046; 74176; 74177; J1885; J7512; J2405; J7030; J7620